=== PATIENT | female | born 1990 | race Caucasian/White ===

== ENCOUNTER → 2016-07-21 | Outpatient (CLI) | payer OTHER | LOC: MOB LAB 11:36 | PROVIDERS: ATTEND Student in an Organized Health Care Education/Training Program | DX: Z34.93 Encounter for supervision of normal pregnancy, unspecified, third trimester (principal); Z3A.36 36 weeks gestation of pregnancy | CPT/HCPCS: 87150 ==

== ENCOUNTER 2016-08-05 21:47 | Inpatient (IN) | payer OTHER ==
[2016-08-05] MEDS ORDERED: NORMAL SALINE 10 ML SYRINGE FLUSH IVP PRN ×2 (21:52→22:09)
[2016-08-05] MEDS ORDERED: Phenylephrine Inj 50 MCG in Normal Saline Flush 0.5 ML IVP PRN (22:09)
[2016-08-05] MEDS ORDERED: Naloxone Inj 0.01 MG in Normal Saline Flush 1 ML IVP PRN (22:09)
[2016-08-05] MEDS ORDERED: CefOXitin Inj 2 GM in Sodium Chloride 0.9% 100 ML IV PRN (22:09)
[2016-08-05] MEDS ORDERED: BUTORPHANOL TARTRATE 2 MG/1 ML VIAL IVP PRN (22:09)
[2016-08-05] MEDS ORDERED: Lidocaine 1% 10 MG/ML - 20 ML VIAL SUBCUT PRN (22:09)
[2016-08-05] MEDS ORDERED: LIDOCAINE W/ SODIUM BICARB 0.5 ML SYR SUBD PRN (22:09)
[2016-08-05] MEDS ORDERED: ePHEDrine Inj 5 MG in Normal Saline Flush 1 ML IVP PRN (22:09)
[2016-08-05] MEDS ORDERED: CALCIUM CARBONATE 500 MG (TUMS) CHEWABLE TABLET PO PRN (22:09)
[2016-08-05] MEDS ORDERED: METHYLERGONOVINE MALEATE 0.2 MG/1 ML VIAL IM PRN (22:09)
[2016-08-05] MEDS ORDERED: Carboprost Inj 250 MCG/ML AMP IM PRN (22:09)
[2016-08-05] MEDS ORDERED: CITRIC ACID/SODIUM CITRATE 30 ML CUP PO PRN (22:09)
[2016-08-05] MEDS ORDERED: Nalbuphine Inj 20 MG/ML Ampule IVP PRN (22:09)
[2016-08-05] MEDS ORDERED: MISOPROSTOL 200 MCG TABLET RECTAL PRN (22:09)
[2016-08-05] MEDS ORDERED: OXYTOCIN 10 UNIT/1 ML IM PRN (22:09)
[2016-08-05] MEDS ORDERED: ONDANSETRON 4 MG/2 ML VIAL IVP PRN (22:09)
[2016-08-05] MEDS ORDERED: TERBUTALINE SULFATE 1 MG/1 ML SDV SUBCUT PRN (22:09)
[2016-08-05] MEDS ORDERED: NALOXONE 0.4 MG/1 ML VIAL IVP PRN (22:09)
[2016-08-05] MEDS ORDERED: Metoclopramide Inj 10 MG/2 ML VIAL IV PRN (22:09)
[2016-08-05] MEDS ORDERED: Famotidine Inj 20 MG in Normal Saline Flush 10 ML IVP PRN ×4 (22:09)
[2016-08-05] MEDS ORDERED: fentaNYL Inj 100 MCG/2 ML VIAL IV PRN (22:09)
[2016-08-05] MEDS ORDERED: diphenhydrAMINE 50 MG/1 ML VIAL IVP PRN (22:09)
[2016-08-05] MEDS ORDERED: Oxytocin 20 Units + LR 1,000 ML IV SCH (22:15)
[2016-08-05] MEDS: Lactated Ringers-OB Dept 1,000 ML PRIMARY IV SCH (22:57)
[2016-08-05 23:12] LABS: HEMATOCRIT 36.6 % (37.0-47.0); HEMOGLOBIN 12.5 g/dL (12.0-16.0); MEAN CORPUSCULAR HEMOGLOBIN 30.3 PG (27-31); MEAN CORPUSCULAR HGB CONC 34.2 g/dL (33-37); RDW COEFFICIENT OF VARIATION 13.6 % (11.5-14.5); RED BLOOD COUNT 4.13 10^6/uL (4.20-5.40); WHITE BLOOD COUNT 12.87 10^3/uL (4.8-10.8)
[2016-08-06] MEDS: Lactated Ringers-OB Dept 1,000 ML PRIMARY IV SCH ×3 (02:44→13:42)
[2016-08-06] MEDS ORDERED: Fent/Bupiv 2mcg/0.0625% Epid 250 ML ONE (03:20)
--- NOTE | 2016-08-06 04:14 | CRNA.PROCE ---
Central Neuraxis Block [facility] - - Safety Measures: Site Verified (In Labor requesting analgesia. Spontaneous rupture of membranes @ 2100. Reported to be 4 plus centimeters. Had 100 mics of Fentanyl IV @ 0200.) - - Type of Block: Epidural Reason for Block: Analgesia Moniters Used During Block: SPO2, NIBP Positioning: Sitting Skin Prep Used: Betadine (Times 3) Draped: Yes Skin Infiltration - Enter Amount Used in Comment Field: 1% Xylocaine (mL): Yes ( 1.0 ml) Spinal Needle Used: 18 Hustead 80 mm (GARO with Saline) Local Anesthetic - Enter Amount Used in Comment Field: 1.5 % Xylocaine with Epinephrine 1:200,000 (mL): Yes (4.5 ml) Number of Centimeters Catheter Threaded: 3.5 (No Parasthesia) Bioclusive Dressing Applied: Yes (Skin prep under adhesive.) - - Additional Details: Test Dose at 304--Negative for SAB or IV. Discussed the three most likely and anesthetic techniques. Placed on infusion pump with settings of 14 ml cont. 7 ml demand. 10 min lockout. 10 ml loading dose. Significant analgesia with test dose. Called to evaluate R lower Quadrant analgesia window. Will increase concentration and amount of local anesthetic for brief period. 50 mcgs Fentanyl iv @ 1152. 50 mcgs Fentanyl epidural @ 1153 6 ml of 3% Nesacaine via epidural @ 1153 6 ml of 3% Nesacaine via epidural @1209 Delivered vaginally at 1408 Latoya Velasquez MS, SIGN LANGUAGE TEACHER
[2016-08-06] MEDS ORDERED: fentaNYL 2 MCG/BUPIVACAINE 0.0625%/NS 0.9% 250 ML BAG EPIDURAL SCH (04:30)
[2016-08-06] MEDS ORDERED: NALOXONE 0.4 MG/1 ML VIAL IVP PRN (04:32)
[2016-08-06] MEDS ORDERED: BUTORPHANOL TARTRATE 2 MG/1 ML VIAL IVP PRN (04:32)
[2016-08-06] MEDS ORDERED: diphenhydrAMINE 50 MG/1 ML VIAL IVP PRN ×2 (04:32→15:42)
[2016-08-06] MEDS ORDERED: ePHEDrine Inj 5 MG in Normal Saline Flush 1 ML IVP PRN (04:32)
[2016-08-06] MEDS ORDERED: Nalbuphine Inj 20 MG/ML Ampule IVP PRN ×2 (04:32→15:42)
[2016-08-06] MEDS ORDERED: Naloxone Inj 0.01 MG in Normal Saline Flush 1 ML IVP PRN (04:32)
[2016-08-06] MEDS ORDERED: Phenylephrine Inj 50 MCG in Normal Saline Flush 0.5 ML IVP PRN (04:32)
--- NOTE | 2016-08-06 09:08 | OB.PROGRES ---
Interval History: at 38 3/7 weeks gestation, presented last night after SROM. She has progressed on her own. Epidural in place. Comfortable. Clear fluid. Objective - Cervical Exam Cervical Exam: /-1 per DEVAUGHN [place]: q2-4 mins Heart Rate Interpretation Category: Category I - Labs CBC and BMP: 08/05/16 22:30 Labs - Last 24 Hours: Laboratory Results 08/05/16 08/05/16 Range/Units 22:00 22:30 WBC 12.87 H (4.8-10.8) 10^3/uL RBC 4.13 L (4.20-5.40) 10^6/uL Hgb 12.5 (12.0-16.0) g/dL Hct 36.6 L (37.0-47.0) % MCV 88.6 (81-99) FL MCH 30.3 (27-31) PG MCHC 34.2 (33-37) g/dL RDW Std Deviation 43.4 (39-50) fL RDW Coeff of Guillermina 13.6 (11.5-14.5) % Plt Count 229 (140-350) 10*3/uL MPV 10.0 (7.4-12.2) FL Amnio Fld Other Info Positive (NEGATIVE) - Vital Signs Last Taken Vital Signs: Vital Signs - Last Taken Temperature 98.2 F 08/06/16 07:32 Pulse Rate 121 H 08/06/16 06:30 Respiratory Rate 20 08/06/16 05:45 Blood Pressure 118/68 08/06/16 05:45 Pulse Ox 99 08/06/16 07:00 Assessment and Plan - Patient Problems (1) Active labor at term Current Visit: Yes Status: Acute Support Text: 26 yo at 38 3/7 weeks gestation, s/p SROM -Continue close monitoring, add augmentation if necessary -GBS positive, has received 3 doses of PCN -Epidural in place for pain control -Rh negative, may need rhogam pp
[2016-08-06] MEDS ORDERED: Oxytocin 20 Units + LR 1,000 ML IV SCH ×2 (09:30→15:42)
--- NOTE | 2016-08-06 11:52 | OB.PROGRES ---
Interval History: No change between 545 and 0800 this morning when I was rounding, we gave her another hour, no change. Pitocin was started at 2 mu, currently up to 6mus. IUPC just placed and contractions inadequate. Patient starting to have more pain in RLQ. Objective - Cervical Exam Cervical Exam: /0, IUPC placed [place]: q4 mins Heart Rate: baseline 125, moderate variability, +accels, no decels Heart Rate Interpretation Category: Category I - Labs CBC and BMP: 08/05/16 22:30 Labs - Last 24 Hours: Laboratory Results 08/05/16 08/05/16 Range/Units 22:00 22:30 WBC 12.87 H (4.8-10.8) 10^3/uL RBC 4.13 L (4.20-5.40) 10^6/uL Hgb 12.5 (12.0-16.0) g/dL Hct 36.6 L (37.0-47.0) % MCV 88.6 (81-99) FL MCH 30.3 (27-31) PG MCHC 34.2 (33-37) g/dL RDW Std Deviation 43.4 (39-50) fL RDW Coeff of Guillermina 13.6 (11.5-14.5) % Plt Count 229 (140-350) 10*3/uL MPV 10.0 (7.4-12.2) FL Amnio Fld Other Info Positive (NEGATIVE) - Vital Signs Last Taken Vital Signs: Vital Signs - Last Taken Temperature 98.2 F 08/06/16 07:32 Pulse Rate 121 H 08/06/16 06:30 Respiratory Rate 18 08/06/16 09:24 Blood Pressure 118/68 08/06/16 05:45 Pulse Ox 99 08/06/16 07:00 Assessment and Plan - Patient Problems (1) Active labor at term Current Visit: Yes Status: Acute Support Text: 26 yo at 38 3/7 weeks gestation, s/p SROM -Titrate pitocin to adequate contraction (currently 6 mvu, IUPC in place) -GBS positive, has received 4 doses of PCN -Epidural in place for pain control -Rh negative, may need rhogam pp
[2016-08-06] MEDS ORDERED: Chloroprocaine 3% MPF (30mg/ml) 20ml vial ONE (11:53)
[2016-08-06] MEDS ORDERED: fentaNYL Inj 100 MCG/2 ML VIAL ONE (11:54)
[2016-08-06] MEDS ORDERED: Methylergonovine Tab 0.2 MG TAB PO PRN (15:42)
[2016-08-06] MEDS ORDERED: CALCIUM CARBONATE 500 MG (TUMS) CHEWABLE TABLET PO PRN (15:42)
[2016-08-06] MEDS ORDERED: ONDANSETRON 4 MG/2 ML VIAL IVP PRN (15:42)
[2016-08-06] MEDS ORDERED: ACETAMINOPHEN 325 MG TABLET PO PRN (15:42)
[2016-08-06] MEDS ORDERED: IBUPROFEN 800 MG TABLET PO PRN (15:42)
[2016-08-06] MEDS ORDERED: HYDROcodone-APAP 5 MG -325 MG TABLET PO PRN (15:42)
[2016-08-06] MEDS ORDERED: METHYLERGONOVINE MALEATE 0.2 MG/1 ML VIAL IM PRN (15:42)
[2016-08-06] MEDS ORDERED: MISOPROSTOL 200 MCG TABLET RECTAL ONE (15:42)
[2016-08-06] MEDS ORDERED: OXYTOCIN 10 UNIT/1 ML IM ONE (15:42)
[2016-08-06] MEDS ORDERED: Carboprost Inj 250 MCG/ML AMP IM PRN (15:42)
[2016-08-06] MEDS ORDERED: diphenhydrAMINE 25 MG CAPSULE PO PRN (15:42)
[2016-08-06] MEDS ORDERED: BENZOCAINE/MENTHOL SPRAY 56 GM BOTTLE TOPICAL PRN (15:42)
[2016-08-06] MEDS ORDERED: GLYCERIN/WITCH HAZEL 1 BOX TOPICAL PRN (15:42)
[2016-08-06] MEDS ORDERED: LANOLIN HPA 40 GM TUBE TOPICAL PRN (15:42)
[2016-08-06] MEDS ORDERED: Ondansetron ODT Tab 4 MG TAB PO PRN (15:42)
[2016-08-06] MEDS ORDERED: NORMAL SALINE 10 ML SYRINGE FLUSH IVP PRN (15:42)
--- NOTE | 2016-08-06 16:15 | OB.DEL.SUM ---
Delivery Note Delivery Summary: 26 yo G2 now P1 presented after SROM (around 2129). She progressed on her own to 8 cm, she then needed pitocin for augmentation. She delivered via normal vaginal delivery a live term AGA female in MARK position over a small midline episiotomy. The tolerated labor up until the end, heart rate stayed in the 80s, at which time decision was made to proceed with an episiotomy. She did have epidural anesthesia. No nuchal cord noted. She was limp and blue initially and thus cord was clamped quickly, cut by dad, and handed of to nurse and RT for evaluation. Placenta delivered spontaneously, 3 vessel cord. 2nd degree episiotomy repaired with 3-0 vicryl rapide. EBL 200 cc. See cord gases in baby's chart. - Patient Problems (1) Active labor at term Current Visit: Yes Status: Acute
[2016-08-06] MEDS ORDERED: RHO(D) IMMUNE GLOBULIN 1500 UNIT(300 mcg)SYRIN IM ONE (16:16)
[2016-08-06] MEDS: DOCUSATE 100 MG CAPSULE PO SCH (20:48)
[2016-08-07 05:25] VITALS: RESP 18
[2016-08-07 07:54] VITALS: TEMP 98
[2016-08-07] MEDS: DOCUSATE 100 MG CAPSULE PO SCH (08:56)
[2016-08-07] MEDS ORDERED: POLYETHYLENE GLYCOL 3350 17 GM POWDER PO SCH (09:00)
[2016-08-07] MEDS ORDERED: Prenatal Multivitamin Tab 1 TAB TAB PO SCH (09:00)
--- NOTE | 2016-08-07 11:00 | OB.PROGRES ---
Subjective Post Day: 1 Pain Management: Epidural HUMAN SERVICE TECHNICIAN [place] Catheter: No Diet: Regular Feeding Method: Exculsively Ambulating: Yes Objective - General General Appearance: POSITIVE: No Acute Distress, Cooperative - Cardiovacular Cardiovascular Exam: POSITIVE: RRR, No Murmur Edema: No Pedal Edema - Respiratory Respiratory Exam: POSITIVE: Clear to Auscultation - Bilaterally, Breathing Non Labored - Abdomen Bowel Sounds: Present - Fundus/Lochia/Perineum Uterus Consistency: Firm Uterus Position: POSITIVE: Below Umbilicus Lochia Amount: Scant < 10 ml Lochia Color: Rubra/Red Assesstment / Plan (1) Normal vaginal delivery Current Visit: Yes Status: Acute Support Text: 26 yo G2 now P1, PPD s/p with episiotomy. -Pain well controlled -Breast feeding, financial consultant to come by today. -Blood type A-, Infant O+, Rhogam given -Plan to do Mirena IUD 6weeks pp -D/c today, f/u with me in 6 weeks. Rx for docucate and ibuprofen sent to pharmacy. Continue PNV
--- NOTE | 2016-08-07 15:09 | DCSUMMARY ---
Hospitalization Summary Admit Date: 08/05/16 Discharge Date: 08/07/16 Primary Diagnosis:: SROM Secondary Diagnosis:: Delivery Type: Vaginal Hospital Course: 26 yo G2 now P1 presented at 38 2/7 weeks gestation after spontaneous rupture of membranes. She initially progressed on her own to 8cm then required augmentation 2/2 inadequate contractions. She delivered a TAGA female approximately 17 hours after SROM. Given repetetive late, then prolonged decels with pushing and a small outlet, an episiotomy was cut to assist delivery. Apgars 7, 8. weighed 6 lbs 11 oz. She had a 2nd degree repair in routine fashion. course uncomplicated. / Postop Complications: none apparent [place] Complications: none apparent Exam - Vitals Vital Signs: Vital Signs Temperature 98 F Temperature Source Oral Pulse Rate [Pulse Oximeter] 98 Pulse Rate 97 Respiratory Rate [right lower 22 sdie with contractions] Respiratory Rate [Contractions 22 ] Respiratory Rate 18 Blood Pressure [Right Arm] 97/53 Blood Pressure 125/62 Pulse Ox 98 Oxygen Delivery Method Room Air Height 5 ft 2 in Weight 169 lb Patient Problems - Patient Problem List (1) Normal vaginal delivery Current Visit: Yes Status: Acute Support Text: 26 yo G2 now P1, PPD s/p with episiotomy. -Pain well controlled -Breast feeding, [employer] consultant to come by today. -Blood type A-, Infant O+, Rhogam given -Plan to do Mirena IUD 6weeks pp -D/c today, f/u with me in 6 weeks. Rx for docucate and ibuprofen sent to pharmacy. Continue PNV
== END 2016-08-07 16:30 | disposition home or self-care (01) | DRG 775 ==
LOC: OBOP 21:47 → OBIP 22:14
PROVIDERS: ADMIT Obstetrics & Gynecology; ATTEND Student in an Organized Health Care Education/Training Program
PROC: 10E0XZZ Delivery of Products of Conception, External Approach (ICD-10-PCS; principal; 2016-08-06)
PROC: 0W8NXZZ Division of Female Perineum, External Approach (ICD-10-PCS; 2016-08-06)
DX: O80 Encounter for full-term uncomplicated delivery (principal); Z3A.38 38 weeks gestation of pregnancy; Z37.0 Single live birth
CPT/HCPCS: 36415; 81003; 84112; 85027; 86850; 86900; 86901; 86970; J2001; J2210; J2400; J2405; J2540; J2790; J3010; J3490; J7050; J7120

== ENCOUNTER → 2016-09-17 | Outpatient (CLI) | payer OTHER | LOC: MOB LAB 10:28 | PROVIDERS: ATTEND Student in an Organized Health Care Education/Training Program | DX: Z30.430 Encounter for insertion of intrauterine contraceptive device (principal) | CPT/HCPCS: 87491; 87591 ==